=== PATIENT | male | born 1935 | race Caucasian/White ===

== ENCOUNTER 2016-12-04 21:57 | Emergency (ER) | payer MEDICARE, BC ==
--- NOTE | ~2016-12-04 | EKG ---
PATIENT: CRISTHIAN ROCK UNIT #: [id number] Ventricular Rate: 71 BPM Atrial Rate: 71 BPM P-R Interval: 204 ms QRS Duration: 106 ms Q-T Interval: 400 ms QTC Calculation(Bezet): 434 ms P Quail: 74 degrees Calculated R Quail: -51 degrees Calculated T Quail: 41 degrees Diagnosis Line: Normal sinus rhythm Diagnosis Line: Incomplete right bundle branch block Diagnosis Line: Left anterior fascicular block Diagnosis Line: Possible Inferior infarct (cited on or before Diagnosis Line: 04-DEC-2016) Diagnosis Line: Abnormal ECG Diagnosis Line: When compared with ECG of 04-DEC-2016 23:14, Diagnosis Line: (unconfirmed) Diagnosis Line: No significant change was found Diagnosis Line: Confirmed by NELSON MENDOZA MD ([id number]) on Diagnosis Line: 12/05/2016 10:41:52 AM INTERPRETING MD: KELLY MEDRANO
--- NOTE | ~2016-12-04 | CR72 ---
[facility] A Service of [facility] & [facility] RADIOLOGY TEXT RESULTS PATIENT: CRISTHIAN ROCK LOCATION: [facility] : 35 UNIT #: [id number] AGE: [address]: Gui Guzman MD SEX: M ORDER DR: [id number] [facility] [address] [place], [place] [address] [id number] E MR#: [id number] Acc #: [id number] NAME: CRISTHIAN ROCK. : 1935 SEX: M STUDY DATE/TIME: 12/04/2016 23:30 UNIT: [facility] ROOM: STUDY DESCRIPTION: CR Chest Single View Portable Attending Physician: Gui Guzman M.D. Ordering Physician: Gui Guzman M.D. Primary Care Physician: Kamran Catalan M.D. MEDICAL IMAGING REPORT This report is preliminary unless electronic signature is present EXAM Portable chest INDICATION Shortness of air congestion today. COMPARISON 05/07/2016 FINDINGS A portable view of the chest was obtained. The heart size and vascularity are normal and lungs are clear. Sternotomy wires are present. IMPRESSION No active disease. Dictated by... Maurice Muñoz M.D. THIS IS AN ELECTRONICALLY VERIFIED REPORT Maurice Muñoz M.D. at 12/05/2016 9:52 PM VÍCTOR/nayana TD: 12/05/2016 00:21 JOB #: [id number] MEDICAL IMAGING REPORT Page 1 of 1 COPY
--- NOTE | ~2016-12-04 | CT71 ---
[facility] A Service [facility] RADIOLOGY TEXT RESULTS PATIENT: CRISTHIAN ROCK LOCATION: [facility] : 35 UNIT #: [id number] AGE: [address]: Gui Guzman MD SEX: M ORDER DR: [id number] [id number] [place], [place] [address] [id number] E MR#: [id number] Acc #: [id number] NAME: CRISTHIAN ROCK. : 1935 SEX: M STUDY DATE/TIME: 12/04/2016 23:50 UNIT: [facility] ROOM: STUDY DESCRIPTION: CT Head Wo Contrast Attending Physician: Gui Guzman M.D. Ordering Physician: Gui Guzman M.D. Primary Care Physician: Kamran Catalan M.D. MEDICAL IMAGING REPORT This report is preliminary unless electronic signature is present EXAM CT scan of the head without contrast INDICATION Patient fell and hit back of head with pain and weakness. Injury happened today. COMPARISON 05/07/[address] exam was performed with one or more of the following radiation dose reduction techniques: automatic exposure control, adjustment of mA and/or kV according to patient size, and iterative reconstruction. FINDINGS Unenhanced images were obtained through the brain. There is mild generalized atrophy. There are no masses or extraaxial fluid collections or hemorrhage. No fracture is identified. IMPRESSION Generalized atrophy, otherwise normal. Dictated by... Maurice Muñoz M.D. THIS IS AN ELECTRONICALLY VERIFIED REPORT Maurice Muñoz M.D. at 12/05/2016 5:53 AM VÍCTOR/nayana TD: 12/05/2016 00:29 [facility] A Service [facility] RADIOLOGY TEXT RESULTS PATIENT: CRISTHIAN ROCK LOCATION: [facility] : 35 UNIT #: [id number] AGE: [address]: Gui Guzman MD SEX: M ORDER DR: JOB #: [id number] MEDICAL IMAGING REPORT Page 1 of 1 COPY
[~2016-12-04 21:57] MED LIST: ALLEGRA PO; ASPIRIN PO; CELECOXIB200 MG PO; CELEXA PO; CELEXA20 M1 PO; CELEXA20 MG PO; CLARITIN R10 MG REDI PO; CLOPIDOGREL75 MG PO; EFFEXOR75 M3 PO; EXELON PO; EXELON1.5 MG PO; FUROSEMIDE40 MG PO; HALDOL0.5 MG PO; HUMALOG MIX 75/10 ML SUBQ; HUMALOG100 UNIT/1 SUBQ; HUMULIN 70/30 V10 ML SQ; HYDRALAZINE HCL25 MG PO; KCL PO; KLONOPIN PO; KLONOPIN1 M1 PO; KLONOPIN1 MG PO; KLOR-CON SPRIN10 MEQ; LANTUS100 U/ML SUBQ; LANTUS100 UNITS/; LANTUS100 UNITS/ SUBQ; LASIX PO; LASIX20 MG PO; LEVOTHYROXINE100 MCG PO; LEVOXYL0.137 MG PO; LIPITOR PO; LISINOPRIL PO; LISINOPRIL20 MG PO; LOTREL PO; NORVASC10 MG PO; PLAVIX PO; PRAVACHOL PO; PRESERVISION A1 EAC3 PO; QUETIAPINE FUM100 MG PO; RIVASTIGMINE1.5 MG PO; SEROQUEL PO; SEROQUEL XR150 MG PO; SODIUM CHLORIDE1 GM PO; SYNTHROID PO; SYNTHROID137 MCG PO; VITAMIN B-1000 MCG/1 SUBQ
[2016-12-04 23:25] LABS: BASOPHIL# 0.1 X10e3 (0-0.3); BASOPHIL% 0.8 % (0-2.5); EOSINOPHIL# 0.1 X10e3 (0-0.7); HEMATOCRIT 45.8 % (38.0-50.0); HEMOGLOBIN 15.2 gm/dL (13.0-16.0); LYMPHOCYTE# 1.9 X10e3 (1.0-3.5); LYMPHOCYTE% 18.6 % (17.0-45.0); MEAN CELL VOLUME 97.3 FL (83-96); MEAN CORPUSCULAR HEMOGLOBIN 32.3 PG (28-34); MEAN CORPUSCULAR HGB CONC 33.2 g/dL (30-36); MEAN PLATELET VOLUME 7.7 FL (6.5-11.5); MONOCYTE# 0.7 X10e3 (0-1.0); MONOCYTE% 6.5 % (3.0-12.0); NEUTROPHIL# 7.5 X10e3 (1.5-7.1); NEUTROPHIL% 73.1 % (40-75); PLATELET COUNT 268 X10e3 (140-420); RED BLOOD COUNT 4.71 X10e (3.90-5.60); RED CELL DISTRIBUTION WIDTH 13.9 % (11.0-15.5); WHITE BLOOD COUNT 10.2 X10e3 (4.0-10.5)
[2016-12-04 23:28] LABS: DIFF IND NO
[2016-12-04 23:34] LABS: POC - TROPONIN <0.05 ng/mL (<=0.05)
[2016-12-04 23:41] LABS: URINE SOURCE CATH
[2016-12-04 23:46] LABS: URINE APPEARANCE CLEAR; URINE BILIRUBIN NEG (NEG); URINE BLOOD NEG (NEG); URINE COLOR YELLOW; URINE GLUCOSE >1000 MG/DL (NEG); URINE KETONE NEG (NEG); URINE LEUKOCYTE ESTERASE 2+ (NEG); URINE NITRATE NEG (NEG); URINE PROTEIN NEG (NEG); URINE SPECIFIC GRAVITY 1.029 (1.003-1.035); URINE UROBILINOGEN 0.2 MG/DL (NEG)
[2016-12-04 23:49] LABS: CULTURE INDICATED? YES; URBCS1 AUWI 0-2 /[HPF] (0-2); URINE BACTERIA AUWI 1+ (NEGATIVE); URINE SQUAMOUS EPITHELIAL CELL NONE SEEN /[HPF]; UWBCS1 AUWI 100-200 (0-5)
[2016-12-05 00:09] LABS: BILIRUBIN, DIRECT 0.1 mg/dL (0.0-0.2); BILIRUBIN,INDIRECT 0.7 mg/dL (0.0-0.9); BILIRUBIN,TOTAL 0.8 mg/dL (0.2-2.0); CALCIUM SERUM 9.2 mg/dL (8.4-10.2); CREATININE SERUM 0.8 mg/dL (0.6-1.4); GLOM FILT RATE Estimated 83.8 mL/min (>60); POTASSIUM 4.4 mmol/L (3.5-5.1); PROTEIN TOTAL SERUM 7.5 g/dL (6.0-8.3)
== END 2016-12-05 01:25 | disposition home or self-care (01) ==
LOC: CED 21:57
PROVIDERS: Emergency Medicine
DX: R41.0 Disorientation, unspecified (principal); N39.0 Urinary tract infection, site not specified; E11.65 Type 2 diabetes mellitus with hyperglycemia; Z79.899 Other long term (current) drug therapy; Z79.4 Long term (current) use of insulin
CPT/HCPCS: 36415; 70450; 71010; 80048; 80076; 81003; 82550; 82553; 82947; 83605; 84484; 85025; 87040; 87086; 93005; 96361; 96374; 99285; J1815

== ENCOUNTER 2016-12-10 16:59 | Inpatient (IN) | payer MEDICARE, BC ==
[~2016-12-10] VITALS: Ht 167.6 cm; Wt 61.8 kg
--- NOTE | ~2016-12-10 | DS ---
Unit #: [id number] #: [id number] Patient: CRISTHIAN ROCK [id number] [address] [address] [id number] I MR#: [id number] NAME: CRISTHIAN ROCK. ROOM: 305 Age: 81 Sex: M Admission Date: 12/10/2016 : 1935 Discharge Date: 12/14/2016 Attending Physician: Thomas Rendon M.D. Primary Care Physician: Kamran Catalan M.D. DISCHARGE SUMMARY DISCHARGE DIAGNOSES 1. Altered mental status. 2. Dementia. 3. History of cerebrovascular accident. 4. Hypertension. 5. History of coronary artery disease. 6. Diabetes. DISCHARGE MEDICATIONS 1. Celexa 20 mg daily. 2. Pravachol 20 mg daily. 3. Hydralazine 50 mg p.o. b.i.d. 4. Zestril 20 mg daily. 5. Levemir 20 units subcu q.a.m. and 10 units subcu q.h.s. 6. Sliding scale insulin. 7. NovoLog 3 units subcu t.i.d. with meals. 8. Pepcid 20 mg daily. 9. Vitamin A, C, E with zinc and copper tablets, 1 tablet daily. 10. Multivitamin daily. 11. Rivastigmine 1.5 mg p.o. b.i.d. 12. Plavix 75 mg daily. 13. Zyprexa 5 mg daily. 14. Sodium chloride 1 gram p.o. t.i.d. with meals. 15. Celebrex 200 mg p.o. daily. 16. Synthroid 100 mcg daily. 17. Vitamin B12 - 1,000 mcg IM daily. Start date December 12, 2016. DISPOSITION Going to [facility]. CONSULTS ON THIS HOSPITAL STAY 1. Dr. Cheek, endocrinology. 2. Dr. Pollack, neurology. DIAGNOSTIC STUDIES IMAGING: Chest x-ray on admission - No acute findings. LABS: Blood culture negative. HISTORY OF PRESENT HOSPITAL STAY Please refer to H and P done by my colleague, Dr. Salazar, for initial presentation on this gentleman. ACTIVE PROBLEMS AND DIAGNOSES Unit #: [id number] #: [id number] Patient: CRISTHIAN ROCK Altered mental status. Most likely secondary to worsening dementia. Currently mental status is at baseline. Status post evaluation per neurology. Stable per neurology. Continue B12 shots for 7 days total until December 19. Dementia. Continue home meds. History of CVA in the past. Continue Plavix. Continue Pravachol. Hypertension. Started on lisinopril. May titrate up. Continue hydralazine. May titrate up. History of coronary artery disease. Continue home meds. Diabetes. Continue insulin regime as above. Status post evaluation per Dr. Cheek. DISPOSITION As above. DISCHARGE MEDS As above. OUTPATIENT FOLLOWUP 1. With psychiatry. 2. Follow up with primary care at the subacute rehab. Dictated by... Thomas Rendon M.D. BRANDI/ruben TD: 12/14/2016 08:30 JOB #: [id number] DISCHARGE SUMMARY Page 1 of 1 X Thomas Rendon MD X DISCHARGE SUMMARY
--- NOTE | ~2016-12-10 | EKG ---
PATIENT: CRISTHIAN ROCK UNIT #: [id number] Ventricular Rate: 65 BPM Atrial Rate: 65 BPM P-R Interval: 204 ms QRS Duration: 98 ms Q-T Interval: 418 ms QTC Calculation(Bezet): 434 ms P Mobile: 72 degrees Calculated R Mobile: -76 degrees Calculated T Mobile: 29 degrees Diagnosis Line: Normal sinus rhythm with sinus arrhythmia Diagnosis Line: Left anterior fascicular block Diagnosis Line: Inferior infarct , age undetermined Diagnosis Line: Abnormal ECG Diagnosis Line: Diagnosis Line: Confirmed by JORGE BAKER MD ([id number]) on Diagnosis Line: 12/11/2016 8:31:20 AM INTERPRETING MD: SAMUEL MEDRANO
--- NOTE | ~2016-12-10 | CO ---
Unit #: [id number] #: [id number] Patient: CRISTHIAN ROCK [id number] [facility] [address] [place], [place] [address] [id number] Adam MR#: [id number] NAME: CRISTHIAN ROCK. ROOM: 305 Age: 81 Sex: M Admission Date: 12/10/2016 : 1935 Attending Physician: Thomas Rendon M.D. Primary Care Physician: Kamran Catalan M.D. Consultation Date: 12/11/2016 CONSULTATION REPORT PRIMARY CARE PHYSICIAN Kamran Catalan M.D. REASON FOR CONSULTATION Altered mental status. PATIENT IDENTIFICATION This is an 81-year-old, male, evaluated in room 305 at [facility]. SOURCE OF INFORMATION Obtained from the patient's family as well as medical record. HISTORY OF PRESENT ILLNESS This is an 81-year-old, male with a past medical history of dementia, CVA, hypertension, hyperlipidemia, who was brought in by family for reported mental status changes and generalized weakness and fatigue, was worsening for the last week and gradually getting worse. The patient was in our ER about a week and half ago and was treated for possible UTI, though the culture grew mixed, specimen possibly contaminated. The patient was treated on Cipro for 3 days. Apparently, the patient's memory has been getting worse and he has not been able to ambulate; however, he has gotten better since being here overnight. He does not have any complaint of headache, neck pain, fever, chills, change in weight or routine otherwise. No complaint of any focal weakness or paresthesia, any seizure activity or stroke-like symptoms. I did discuss with his daughter over the phone and she reports concern over his weakness that has gotten progressively worse over the last week or two. She states he normally ambulates with a walker and is able to get up and walk to the kitchen and smoked his e-cigarette and walked to the bed. She states that he has been weaker overall and has had difficulty using his walker. He had a head CT done initially for these symptoms on 12/04/2016, which shows generalized atrophy, but is otherwise normal. He had a chest x-ray done on the , yesterday, which was negative for any acute findings per Radiology report. On exam, currently, he is awake. He is alert and oriented x2, also the year, but not the month, the day of the week. He has very poor database. He appears to be at his baseline from prior records and discussion with the patient's family. He has generalized weakness, but he is nonfocal. He has no proximal weakness compared to his distal strength. He has no ptosis. He has no shortness of air, trouble breathing. He has no profound head or neck flexion weakness. He has normal shoulder shrug. Cranial nerve exam findings are normal. The patient denies current complaint at this time. The patient is a poor historian. Unit #: [id number] #: [id number] Patient: CRISTHIAN ROCK PAST MEDICAL HISTORY 1. CVA. 2. Hypertension. 3. Hyperlipidemia. 4. Diabetes mellitus, type 2. 5. Alzheimer's dementia. 6. Hypothyroidism. 7. CAD with history of CABG in 2006. 8. Angioplasty to RCA in 1992. 9. Tobacco abuse. He continues to use an e-cigarette at home according to the daughter. 10. Appendectomy. ALLERGIES No known drug allergies. FAMILY HISTORY Noncontributory given stated age of 81. SOCIAL HISTORY The patient's daughter lives with him and cares for him. He requires assistance with normal daily activities of living, but is able to ambulate with a walker throughout the house and is able to ambulate to the bathroom independently with a walker. He has no history of alcohol abuse or illicit drug use. HOME MEDICATIONS Include Celexa, furosemide, rivastigmine, Klonopin, sodium chloride, hydralazine, levothyroxine sodium, Pravachol, Celebrex, Humalog insulin, Lantus insulin, potassium, Plavix, Zyprexa, multivitamin. ALLERGIES No known drug allergies. REVIEW OF SYSTEMS 14-point review of systems was attempted. Pertinent positives are as discussed above, otherwise negative. The patient has poor database. PHYSICAL EXAMINATION VITAL SIGNS: Temperature 98.1, he has been afebrile, pulse 77, respirations 18, blood pressure 184/78. Blood pressure in the ER on arrival was 181/72, oxygen saturation 97%. Height 5 feet 6 inches, weight 130 pounds, BMI 21. NEUROLOGIC: The patient is awake. He is alert. He is oriented to person and place. He is oriented to the year, but not the month or the day of the week. He has a poor database. He is unable to provide a reliable or meaningful history. He follows simple commands. He has no right or left confusion. No finger agnosia. He is not aphasic or apraxic. His speech is clear. He follows simple commands. Again, he has a poor database. He appears to have good insight and judgment. He does have short-term memory recall difficulty. Cranial nerve exam; he does not exhibit any field cut. Eyes are conjugate without ptosis or nystagmus. Extraocular movements are intact. Sensation of face and scalp is intact. Strength of muscles of facial expression is intact. Hearing is intact to voice. Tongue is midline. Uvula is midline. Palate elevation is normal. Head turning and shoulder shrug are unremarkable. Neck is supple. Motor exam, he demonstrates decreased Unit #: [id number] #: [id number] Patient: CRISTHIAN ROCK bulk. Tone is difficult to evaluate. Strength is equal. He has generalized weakness, more so in the lower extremities; however, but no proximal or distal weakness appreciated. No focal weakness appreciated. Reflexes are 1/4. Toes are equivocal. Coordination; no past-pointing seen. Normal [id number]. DIAGNOSTIC STUDIES LABORATORY RESULTS: Please see above. LABORATORY RESULTS: Blood cultures preliminary, no growth after 24 hours x2 sets. CMP unremarkable other than glucose of 154. CBC unremarkable other than MCV of 97. TSH 2.89, CPK 207, lactic acid 1.5. Repeat urinalysis is negative and culture not indicated. It does show greater than 1000 glucose. Glucose on arrival yesterday was 437. CARDIOVASCULAR STUDIES: EKG shows normal sinus rhythm with sinus arrhythmia, left anterior fascicular block, inferior infarct age undetermined, per cardiology report on 12/11/2016. IMPRESSION 1. Dementia, Alzheimer's. 2. Generalized weakness, nonfocal. 3. Diabetes mellitus, uncontrolled with significant hyperglycemia upon arrival. 4. Hypertension. 5. History of coronary artery disease. PLAN The patient is nonfocal, is not proximal. He denies back pain, neck pain, fever, or chills. No recent illness or injury. We will ask PT/OT to evaluate and check B12 and folate. No reported recent steroid use, nothing at this time to suggest an acute primary neurologic cause. This was discussed with Dr. Pollack and we will follow along with you, but nothing at this time to suggest further neurologic workup, but we will re-evaluate the patient clinically and further recommendations to follow. Please call for any questions or issues. We thank you very much for allowing us to assist in the care of this patient. Dictated by... Yany Mendez A.P.R.N. for Antonio Hankins/lay TD: 12/12/2016 06:27 JOB #: [id number] Unit #: [id number] #: [id number] Patient: CRISTHIAN ROCK CONSULTATION REPORT Page 1 of 1 X Yany Mendez LADLE PATCHER X CONSULTATION REPORT
--- NOTE | ~2016-12-10 | CR72 ---
[facility] A Service of [facility] RADIOLOGY TEXT RESULTS PATIENT: CRISTHIAN ROCK LOCATION: [facility] : 35 UNIT #: [id number] AGE: [address]: Thomas Rendon MD SEX: M ORDER DR: [id number] [facility] [address]. [place], [place] [address] [id number] I MR#: [id number] Acc #: [id number] NAME: CRISTHIAN ROCK. : 1935 SEX: M STUDY DATE/TIME: 12/10/2016 17:32 UNIT: [address] ROOM: [facility] STUDY DESCRIPTION: CR Chest Single View Portable Attending Physician: Thomas Rendon M.D. Ordering Physician: Gui Guzman M.D. Primary Care Physician: Kamran Catalan M.D. MEDICAL IMAGING REPORT This report is preliminary unless electronic signature is present EXAM Portable chest HISTORY Shortness of air and fever and weakness today. FINDINGS The cardiac size and pulmonary vascularity are normal. Sternotomy and CABG markers and mediastinal clips. Tiny granulomas in both lungs. Mild scarring in the lateral left base. IMPRESSION No acute findings Dictated by... Baron Moon M.D. THIS IS AN ELECTRONICALLY VERIFIED REPORT Baron Moon M.D. at 12/11/2016 11:31 PM DFL/shay TD: 12/11/2016 05:26 JOB #: [id number] MEDICAL IMAGING REPORT Page 1 of 1 COPY
--- NOTE | ~2016-12-10 | HP ---
Unit #: [id number] #: [id number] Patient: CRISTHIAN ROCK [id number] [address] [place], [place] [address] [id number] I MR#: [id number] NAME: CRISTHIAN ROCK. ROOM: 305 Age: 81 Sex: M Admission Date: 12/10/2016 : 1935 Attending Physician: Thomas Rendon M.D. Primary Care Physician: Kamran Catalan M.D. HISTORY AND PHYSICAL CHIEF COMPLAINT Altered mental status. HISTORY OF PRESENTING ILLNESS Mr. Gomes is an 81-year-old male who has multiple medical problems, was brought by his daughter with a complaint of mental status changes. The patient does not have any energy, is confused for one week which was gradually getting worse. The patient was in ER one and a half weeks ago. According to patient's daughter, memory is getting worse, and he is not able to ambulate. The patient is being evaluated at this time in room 305. Per patient, he does not have any complaint of fevers, chills or rigors. No complaint of abdominal pain. He does complain of some pain in the middle of the abdomen in the epigastric area which gets worse on breathing but that has been going on for a long period of time. No complaint of constipation or diarrhea. No complaint of abdominal pain. No ear, nose, throat problem. The patient is awake, alert and oriented x2 for sure. He is able to answer appropriately at this time. The patient has had stroke in the past. The patient was admitted for further workup for generalized weakness and possible mental status changes. The patient does not complain of black colored stool, and does not complain of shortness of breath. No complaint of cough. No complaint of any syncopal episode. He has not fallen recently. He uses a walker to ambulate but has been weak recently. PAST MEDICAL HISTORY 1. History of CVA. 2. Hypertension. 3. Hyperlipidemia. 4. Diabetes mellitus type 2. 5. CVA in 2005. 6. Alzheimer dementia. 7. Hypothyroidism. 8. History of coronary artery disease, status post CABG in 2006. 9. History of angioplasty to RCA in 1992. 10. Tobacco abuse. PAST SURGICAL HISTORY 1. History of CABG. 2. History of angioplasty. 3. History of appendectomy. ALLERGIES No known drug allergies. Unit #: [id number] #: [id number] Patient: CRISTHIAN ROCK SOCIAL HISTORY The patient's daughter lives with him. According to patient, that is his house. History of remote tobacco abuse. No history of alcohol abuse or drug abuse. He tries to ambulate with a walker. FAMILY HISTORY Noncontributory. HOME MEDICATIONS 1. Celexa 20 mg daily. 2. Furosemide 20 mg daily. 3. Rivastigmine 1.5 mg twice a day. 4. Klonopin 0.5 mg twice a day. 5. Sodium chloride 1 g t.i.d. with meals. 6. Hydralazine 50 mg twice a day. 7. Levothyroxine 100 mcg daily. 8. Pravachol 20 mg daily. 9. Celebrex 200 mg daily. 10. Humalog subcu before meals and bedtime. 11. Lantus 20 units subcu b.i.d. 12. Potassium 10 mEq twice a day. 13. Plavix 75 mg daily. 14. Zyprexa 5 mg daily. 15. Multivitamin daily. REVIEW OF SYSTEMS As per History of Presenting Illness. Twelve point review of systems was conducted and reviewed. PHYSICAL EXAMINATION GENERAL: The patient is lying comfortably in bed, is not in any respiratory distress according to him. He can see my face but does not have good vision but he remembers my voice very well. He is oriented x2 for sure. He is able to answer appropriately. VITAL SIGNS: The patient's blood pressure is 180/76, respiratory rate 18, pulse is 75, temperature 97.9. Oxygen saturation is 100%. HEENT: Head is normocephalic. Eye movements are normal. NECK: Supple. CHEST: Fair air entry. No additional sounds. CVS: S1, S2 positive. Regular rhythm. ABDOMEN: Soft. No tenderness. EXTREMITIES: Negative edema. RADIO DISPATCHER: Awake, alert, oriented x2. Is able to move all his extremities. DIAGNOSTIC STUDIES LABORATORY: Lab workup shows WBC 8.0, hemoglobin 16.4, hematocrit 50.6 and platelet count of 281. Lactic acid 1.9. Sodium 133, potassium 4.0, chloride 101, BUN 20, creatinine 0.9, glucose 437. Liver enzymes are stable. Urinalysis shows sugar more than 1000. Lactic acid 1.5, CPK 207, TSH is 2.89. IMAGING: Chest x-ray shows no acute findings. ASSESSMENT AND PLAN Unit #: [id number] #: [id number] Patient: CRISTHIAN ROCK The patient is being admitted to telemetry unit. 1. Mental status changes: It seems to have cleared at this time. 2. Generalized weakness. 3. Diabetes mellitus, uncontrolled. 4. History of coronary artery disease. 5. Hypertension. 6. History of cerebrovascular accident. 7. Hypothyroidism. 8. Dementia. Plan is admit to telemetry unit. PT/OT will be consulted. Home medications have yumiko reviewed and adjusted. IV fluids will be given. The patient may need rehab facility admission. Diabetic management is being done. The patient was on antibiotic for UTI. He just finished Cipro yesterday. Urine seems to be clear, although culture is still pending. Please refer to progress note for further orders. Will talk to patient's daughter. Dictated by Antonio Carrillo/renetta TD: 12/11/2016 09:07 JOB #: [id number] HISTORY AND PHYSICAL Page 1 of 1 X Sandra Salazar MD X HISTORY AND PHYSICAL
--- NOTE | ~2016-12-10 | CO ---
Unit #: [id number] #: [id number] Patient: CRISTHIAN ROCK [id number] [address] [place], [place] [address] [id number] Adam MR#: [id number] NAME: CRISTHIAN ROCK. ROOM: 305 Age: 81 Sex: M Admission Date: 12/10/2016 : 1935 Attending Physician: Thomas Rendon M.D. Primary Care Physician: Kamran Catalan M.D. Consultation Date: 12/11/2016 CONSULTATION REPORT REASON FOR CONSULTATION Management of diabetes mellitus HISTORY OF PRESENT ILLNESS This is an 81-year-old male with history of multiple medical problems, who has been admitted with generalized weakness, confusion, and unable to ambulate and worsening memory. On his admission, his blood glucose was over 400. The patient has a history of diabetes mellitus type 2, which he has been on insulin dependent, taking Lantus and Humalog at home. I have been asked to see the patient for further management. PAST MEDICAL HISTORY Type 2 diabetes mellitus, CVA, Alzheimer disease, hypothyroidism, coronary artery disease plus CABG, angioplasty, tobacco use, hypertension, hyperlipidemia. PAST SURGICAL HISTORY CABG, angioplasty, appendectomy. ALLERGIES None. SOCIAL HISTORY Lives with daughter. No history of alcohol abuse or drug abuse. FAMILY HISTORY Noncontributory. HOME MEDICATIONS List is reviewed. Medications include Lantus 20 units b.i.d., Humalog per sliding scale with meals and at bedtime. Other medications include Celexa, rivastigmine, Klonopin, hydralazine, levothyroxine 100 mcg daily, Pravachol, potassium, Zyprexa, Plavix. REVIEW OF SYSTEMS A 12-point review of system was completed. The patient is confused and oriented in time and person. Rest of the review of systems is unremarkable. PHYSICAL EXAMINATION GENERAL: He is comfortable, no acute distress. VITAL SIGNS: Temperature 98.1, pulse is 77, blood pressure is 184/78. HEENT: Pupils reactive to light. Unit #: [id number] #: [id number] Patient: CRISTHIAN ROCK NECK: Supple. No thyromegaly noted. CHEST: Good air entry. No wheezing. CVS: Regular rhythm. S1, S2. No murmurs. ABDOMEN: Soft and nontender. Bowel sounds positive. EXTREMITIES: No edema or ulcers are noted. DIAGNOSTIC STUDIES LABORATORY RESULTS: Reviewed. A1c is 7.2 in 04/2016. ASSESSMENT 1. Type 2 diabetes mellitus, seems to be very well controlled. 2. The patient with hyperglycemia on admission, specific reason is unknown. 3. Generalized weakness. 4. Alzheimer dementia. PLAN We will change the Levemir to 15 units subcu b.i.d., NovoLog 3 units each meal. Accu-Cheks a.c. and h.s. Cover with supplemental low-dose sliding scale as needed. Continue to follow for further management. Dictated by... Antonio Cummings/lay TD: 12/11/2016 19:17 JOB #: [id number] CONSULTATION REPORT Page 1 of 1 X Coy Cheek MD X CONSULTATION REPORT
[2016-12-10 18:16] LABS: BASOPHIL# 0.1 X10e3 (0-0.3); BASOPHIL% 0.9 % (0-2.5); EOSINOPHIL# 0.1 X10e3 (0-0.7); EOSINOPHIL% 1.1 % (0.0-7.0); HEMATOCRIT 50.6 % (38.0-50.0); HEMOGLOBIN 16.4 gm/dL (13.0-16.0); LYMPHOCYTE# 1.5 X10e3 (1.0-3.5); LYMPHOCYTE% 18.1 % (17.0-45.0); MEAN CELL VOLUME 98.5 FL (83-96); MEAN CORPUSCULAR HGB CONC 32.4 g/dL (30-36); MEAN PLATELET VOLUME 7.5 FL (6.5-11.5); MONOCYTE# 0.5 X10e3 (0-1.0); MONOCYTE% 5.9 % (3.0-12.0); PLATELET COUNT 281 X10e3 (140-420); RED BLOOD COUNT 5.14 X10e (3.90-5.60); RED CELL DISTRIBUTION WIDTH 13.7 % (11.0-15.5)
[2016-12-10 18:21] LABS: DIFF IND NO
[2016-12-10 18:40] LABS: ALBUMIN SERUM 4.2 g/dL (3.5-5.0); BILIRUBIN, DIRECT 0.1 mg/dL (0.0-0.2); BILIRUBIN,INDIRECT 0.4 mg/dL (0.0-0.9); BILIRUBIN,TOTAL 0.5 mg/dL (0.2-2.0); BUN/CREATININE RATIO 22.22; CALCIUM SERUM 9.3 mg/dL (8.4-10.2); CREATININE SERUM 0.9 mg/dL (0.6-1.4); GLOM FILT RATE Estimated 79.8 mL/min (>60); POTASSIUM 4.7 mmol/L (3.5-5.1); PROTEIN TOTAL SERUM 8.1 g/dL (6.0-8.3)
[2016-12-10 20:55] LABS: URINE SOURCE CLEAN CATCH
[2016-12-10 21:01] LABS: URINE APPEARANCE CLEAR; URINE BILIRUBIN NEG (NEG); URINE BLOOD NEG (NEG); URINE COLOR YELLOW; URINE GLUCOSE >1000 MG/DL (NEG); URINE KETONE NEG (NEG); URINE LEUKOCYTE ESTERASE NEG (NEG); URINE NITRATE NEG (NEG); URINE PROTEIN NEG (NEG); URINE SPECIFIC GRAVITY 1.031 (1.003-1.035); URINE UROBILINOGEN 0.2 MG/DL (NEG)
[2016-12-10 21:08] LABS: CULTURE INDICATED? NO
[2016-12-10] MEDS ORDERED: MULTIVITAMINS1 EAC4 PO (22:04)
[2016-12-10] MEDS ORDERED: ZYPREXA PO (22:04)
[2016-12-11 09:21] LABS: BASOPHIL# 0.1 X10e3 (0-0.3); BASOPHIL% 0.9 % (0-2.5); EOSINOPHIL# 0.2 X10e3 (0-0.7); EOSINOPHIL% 1.7 % (0.0-7.0); HEMATOCRIT 48.3 % (38.0-50.0); HEMOGLOBIN 15.9 gm/dL (13.0-16.0); LYMPHOCYTE# 2.2 X10e3 (1.0-3.5); LYMPHOCYTE% 23.5 % (17.0-45.0); MEAN PLATELET VOLUME 7.8 FL (6.5-11.5); MONOCYTE# 0.7 X10e3 (0-1.0); MONOCYTE% 7.9 % (3.0-12.0); NEUTROPHIL# 6.1 X10e3 (1.5-7.1); PLATELET COUNT 285 X10e3 (140-420); RED BLOOD COUNT 4.98 X10e (3.90-5.60); RED CELL DISTRIBUTION WIDTH 13.5 % (11.0-15.5); WHITE BLOOD COUNT 9.2 X10e3 (4.0-10.5)
[2016-12-11 09:23] LABS: DIFF IND NO
[2016-12-11 09:51] LABS: ALBUMIN SERUM 3.9 g/dL (3.5-5.0); BUN/CREATININE RATIO 18.33; CALCIUM SERUM 9.1 mg/dL (8.4-10.2); CREATININE SERUM 0.6 mg/dL (0.6-1.4); GLOM FILT RATE Estimated 94.3 mL/min (>60); POTASSIUM 3.8 mmol/L (3.5-5.1); PROTEIN TOTAL SERUM 7.5 g/dL (6.0-8.3)
[2016-12-11 14:30] LABS: FOLATE (FOLIC ACID) >23.2 ng/mL (>5.8)
[2016-12-13 05:58] LABS: BASOPHIL# 0.1 X10e3 (0-0.3); BASOPHIL% 0.6 % (0-2.5); EOSINOPHIL% 0.2 % (0.0-7.0); LYMPHOCYTE# 1.4 X10e3 (1.0-3.5); LYMPHOCYTE% 16.8 % (17.0-45.0); MEAN CELL VOLUME 96.3 FL (83-96); MEAN CORPUSCULAR HEMOGLOBIN 32.1 PG (28-34); MEAN CORPUSCULAR HGB CONC 33.3 g/dL (30-36); MEAN PLATELET VOLUME 7.8 FL (6.5-11.5); MONOCYTE# 0.6 X10e3 (0-1.0); MONOCYTE% 6.6 % (3.0-12.0); NEUTROPHIL# 6.3 X10e3 (1.5-7.1); NEUTROPHIL% 75.8 % (40-75); PLATELET COUNT 302 X10e3 (140-420); RED BLOOD COUNT 4.67 X10e (3.90-5.60); RED CELL DISTRIBUTION WIDTH 13.4 % (11.0-15.5); WHITE BLOOD COUNT 8.4 X10e3 (4.0-10.5)
[2016-12-13 06:06] LABS: DIFF IND NO
[2016-12-13 07:20] LABS: BUN/CREATININE RATIO 18.33; CALCIUM SERUM 8.9 mg/dL (8.4-10.2); CREATININE SERUM 0.6 mg/dL (0.6-1.4); GLOM FILT RATE Estimated 94.3 mL/min (>60)
== END 2016-12-14 17:30 | DRG 57 ==
LOC: CED 16:59 → CEDOF 21:40 → CED 21:40 → C3A PCU 21:48 → CEDOF 21:48 → C3A PCU 22:56
PROVIDERS: Emergency Medicine; Hospitalist; Nurse Practitioner
DX: G30.9 Alzheimer's disease, unspecified (principal); E11.65 Type 2 diabetes mellitus with hyperglycemia; F02.80 Dementia in other diseases classified elsewhere, unspecified severity, without behavioral disturbance, psychotic disturbance, mood disturbance, and anxiety; Z86.73 Personal history of transient ischemic attack (TIA), and cerebral infarction without residual deficits; I10 Essential (primary) hypertension; E78.5 Hyperlipidemia, unspecified; Z79.02 Long term (current) use of antithrombotics/antiplatelets; Z79.4 Long term (current) use of insulin; F17.290 Nicotine dependence, other tobacco product, uncomplicated; E03.9 Hypothyroidism, unspecified; I25.10 Atherosclerotic heart disease of native coronary artery without angina pectoris; Z95.1 Presence of aortocoronary bypass graft; Z95.5 Presence of coronary angioplasty implant and graft; Z90.49 Acquired absence of other specified parts of digestive tract; E53.8 Deficiency of other specified B group vitamins
CPT/HCPCS: 36415; 71010; 80048; 80053; 80076; 81003; 82550; 82607; 82746; 82947; 83605; 84443; 85025; 87040; 93005; 96360; 97110; 97163; 97166; 97530; 99285; G8978-GP; G8979-GP; G8980-GP; G8987-GO; G8988-GO; J0360; J1815; J3420